=== PATIENT | male | born 1950 | race Caucasian/White ===

== ENCOUNTER 2019-03-23 06:10 | Inpatient (IN) | payer OTHER ==
[~2019-03-23] VITALS: Ht 172.7 cm; Wt 72.6 kg
[2019-03-23 06:15] VITALS: BP 206/109
[2019-03-23] MEDS ORDERED: LIPITOR10 MG PO (06:18)
[2019-03-23] MEDS ORDERED: LISINOPRIL2.5 MG PO (06:18)
[2019-03-23] MEDS ORDERED: SYMBICORT160 MCG/4. INH (06:19)
[2019-03-23] MEDS ORDERED: PROAIR HFA8.5 GM INH (06:19)
[2019-03-23 06:30] LABS: ABSOLUTE LYMPHOCYTES 2.2 thou/uL (0.8-5.3); ABSOLUTE MONOCYTES 1.3 thou/uL (0.0-1.2); ABSOLUTE NEUTROPHILS 6.5 thou/uL (1.6-8.1); BASOPHILS 0.3 %; EOSINOPHILS 0.3 %; HEMATOCRIT 45.4 % (42.0-52.0); HEMOGLOBIN 15.2 gm/dL (14.0-18.0); MCH 32.1 pg (26.0-34.0); MCHC 33.5 g/dL (28.0-37.0); MCV 95.9 fL (80.0-100.0); MONOCYTES 12.7 %; NUCLEATED RBCS 0 /100WBC; PLATELET COUNT* 323 thou/uL (150-400); POLYS 64.7 %; RBC 4.73 mil/uL (4.50-6.00); RDW-CV 12.9 % (10.5-14.5); WBC 10.1 thou/uL (4.0-11.0)
[2019-03-23 06:38] LABS: ANION GAP 8 mmol/L (7-16); BUN 21 mg/dL (7-18); CALCIUM 9.2 mg/dL (8.5-10.1); CHLORIDE 97 mmol/L (98-107); CO2 29 mmol/L (21-32); CREATININE 1.2 mg/dL (0.6-1.3); GLUCOSE 109 mg/dL (70-99); POTASSIUM 4.4 mmol/L (3.5-5.1); SODIUM 134 mmol/L (136-145)
[2019-03-23 06:42] LABS: INR 0.9; PROTIME 9.6 Seconds (9.20-11.50)
[2019-03-23 06:51] LABS: ALBUMIN 3.8 g/dL (3.4-5.0); ALKALINE PHOSPHATASE 73 U/L (46-116); NT-PRO BRAIN NAT PEPTIDE 71 pg/mL (<300); SGOT 22 U/L (15-37); SGPT 35 U/L (30-65); TOTAL BILIRUBIN 0.3 mg/dL (<0.1-1.0); TOTAL PROTEIN 7.6 g/dL (6.4-8.2); TROPONIN-I LEVEL <0.06 ng/mL (<0.06)
[2019-03-23 06:56] LABS: BE -0.9 mmol/L (-2 to +3); PCO2 47.4 mmHg (35.0-45.0); pH 7.345 (7.340-7.450)
[2019-03-23 06:58] LABS: PO2 130.2 mmHg (75.0-100.0)
--- NOTE | 2019-03-23 07:09 | NUR ---
PT REPORTS FEELING MUCH BETTER. O2 REMOVED.
[2019-03-23 09:00] VITALS: BP 112/61
[2019-03-23 09:04] VITALS: BP 130/67
--- NOTE | 2019-03-23 11:07 | EKG ---
[place] [address] ELECTROCARDIOGRAM REPORT Name: ROMA SIMMONS Room: [place] [address] ADM IN .R.#: [id number] Admission: 03/23/19 Attend Phys: Graham Shah Discharge: Date of : 50 Report #: [id number] THIS REPORT FOR: //name// [facility] ED Test Date: 2019-03-23 Test Time: 06:23:51 Pat Name: ROMA SIMMONS Department: Room: [facility] Gender: Drop Press Hand: : 1950 Requested By: Kari Marc Order Number: [id number] MD: Gurinder Godwin Measurements Intervals Stuart Rate: 100 P: 84 CT: 152 QRS: 29 QRSD: 79 T: 70 QT: 327 QTc: 422 Interpretive Statements Sinus tachycardia No previous ECG available for comparison Electronically Signed On 03-23-2019 11:07:35 [employer] by Gurinder Godwin [email or web address] <ELECTRONICALLY SIGNED> By: Gurinder Godwin MD, [facility] 03/23/19 1107 0623 0623 Gurinder Godwin MD, FACC /EPI
[2019-03-23 11:43] VITALS: BP 129/62
[2019-03-23 16:08] VITALS: BP 111/63
[2019-03-24] VITALS (7 sets, daily range): BP systolic 93–146; BP diastolic 42–74
--- NOTE | 2019-03-24 05:56 | NUR ---
ASSUMED PATIENT CARE AT 1900. ASSESSMENT COMPLETED CHARTED. VSS. PATIENT IS SR/ST ON THE MONITOR. PATIENT REQUESTED MEDICATION TO HELP HIM SLEEP. DOCTOR CONTACTED, NEW ORDERS RECEIVED. HOURLY ROUNDING IN PLACE FOR PATIENT SAFETY. CLWR.
--- NOTE | 2019-03-24 08:47 | NUR ---
INITAL ASSESSMENT COMPLETED CHARTED. VSS. TRACING SR/ST ON MONITOR. PT DENIES PAIN. CURRENTLY 93% ON 2LPM. PT REPORTS NON PRODUCTIVE COUGH. HOURLY ROUNDING IN PLACE FOR PT SAFETY. CLWR.
[2019-03-24 08:55] LABS: HEMATOCRIT 41.7 % (42.0-52.0); MCH 32.2 pg (26.0-34.0); MCHC 33.6 g/dL (28.0-37.0); MCV 95.7 fL (80.0-100.0); RBC 4.36 mil/uL (4.50-6.00); RDW-CV 12.7 % (10.5-14.5); WBC 12.8 thou/uL (4.0-11.0)
[2019-03-24 09:07] LABS: CALCIUM 9.5 mg/dL (8.5-10.1); CREATININE 1.1 mg/dL (0.6-1.3); POTASSIUM 4.3 mmol/L (3.5-5.1)
--- NOTE | 2019-03-24 11:45 | NUR ---
MET WITH PT TO DISCUSS HOME SITUATION/DC PLANNING. PT LIVES ALONE, STATES HIS STEPSON IS MOVING IN WITH HIM SO THEY CAN 'HELP EACH OTHER.' PT IS INDEPENDENT, USES NO EQUIPMENT AND HASN'T HAD HH OR BEEN TO SNF. HE DENIES ANY DC NEEDS AT THIS TIME, WAITING TO TALK WITH WILL FOLLOW
[2019-03-25 04:00] VITALS: BP 98/44
[2019-03-25 08:00] VITALS: BP 111/58
--- NOTE | 2019-03-25 08:05 | NUR ---
PT IS ABLE TO COMMUNICATE HIS NEEDS TO STAFF EFFECTIVELY. HE HAS DENIED THE NEED FOR PAIN MEDICATION UP TO THIS TIME. PT STILL ON SUPPLEMENTAL O2 AT THIS TIME. POSSIBLE D/C LATER TODAY.
[2019-03-25 12:10] VITALS: BP 98/52
[2019-03-25 16:20] VITALS: BP 114/57
--- NOTE | 2019-03-25 18:45 | NUR ---
ASSUMED PT CARE AT 0730. ASSESSMENT COMPLETED CHARTED. ABLE TO MAKE NEEDS KNOWN. UP AD KIM IN ROOM. NO C/O PAIN OR DISCOMFORT. SITTING UP IN CHAIR TODAY WATCHING TV OR MOVIES ON HIS PHONE. PT WANTS TO GO HOME AND IS WAITING FOR APPROVAL. WILL CONTINUE TO MONITOR.
[2019-03-25 20:20] VITALS: BP 140/70
[2019-03-26] VITALS (7 sets, daily range): BP systolic 90–127; BP diastolic 42–63
--- NOTE | 2019-03-26 07:59 | NUR ---
PATIENT HAS SLEPT WELL THROUGHOUT MOST OF THE NIGHT. VSS ON 3L 02 VIA NASAL CANNULA. MEDICATIONS GIVEN ORDERED AND CHARTED. PATIENT SINUS RHYTHM ON MONITOR. PATIENT IS UP AD-KIM AND STEADY BUT DOES HAVE SOA ON EXERTION AT TIMES. IV IN RIGHT AC-SL. PATIENT INSTRUCTED TO USE CALL LIGHT WHEN NEEDING ASSISTANCE. HOURLY ROUNDS MADE. WILL CONTINUE WITH PLAN OF CARE AND NURSING TO MONITOR.
[2019-03-26] MEDS ORDERED: SYMBICORT160 MCG/4. INH (11:51)
[2019-03-26] MEDS ORDERED: MUCUS RLF DM E1 EACH PO (11:51)
[2019-03-26] MEDS ORDERED: MEDROL DOSPAK21 TA1 PO (11:51)
[2019-03-26] MEDS ORDERED: IPRAT-ALBUT 0.5-3 ML INH (11:51)
[2019-03-26] MEDS ORDERED: ESCITALOPRAM OX10 MG PO (11:51)
[2019-03-26] MEDS ORDERED: XANAX 0.25 MG0.25 MG PO (11:51)
[2019-03-26] MEDS ORDERED: PROAIR HFA8.5 GM INH (11:51)
--- NOTE | 2019-03-26 15:53 | NUR ---
OXYGEN AND NEBULIZIER ORDERED PER DR ZAVALA. PAPERWORK FAXED TO [facility]. SPOKE TO PATSY WHO CONFIRMED OXYGEN TANK WILL BE DELIVERED TO THE HOSPITAL
--- NOTE | 2019-03-26 16:45 | NUR ---
PATIENT WITH COMPLETE DC ORDER. REVIEWED DC INSTRUCTIONS AND MEDICATION LIST WITH PATIENT ANSWERED QUESTIONS TO PATIENT SATISFACTION. OXYGEN AND NEBULIZER ORDER OBTAINED AND ORDERED FROM [employer]. OXYGEN TANK BROUGHT TO HOSPITAL PRIOR TO DC BY [facility]. IV AND FOAM CHARGER DISCONTINUED. FOAM CHARGER CLEANED AND RETURNED TO POCKET FOR ROOM 233. PATIENT IN POSSESSION OF ALL BELONGINGS. PATIENT LEFT UNIT VIA WC AND NURSING STAFF. PATIENT INSISTS THAT HE WILL DRIVE SELF HOME. PATIENT TRANSPORTED TO HOSPITAL ER ENTRANCE.
== END 2019-03-26 16:44 | disposition home or self-care (01) | DRG 189 ==
LOC: M.ERS 06:10 → M.2W 07:56 → M.TBA-ER 07:56 → M.2W 08:54
PROVIDERS: Personal Emergency Response Attendant; ADMIT Family Medicine
DX: J96.21 Acute and chronic respiratory failure with hypoxia (principal); R65.11 Systemic inflammatory response syndrome (SIRS) of non-infectious origin with acute organ dysfunction; J44.1 Chronic obstructive pulmonary disease with (acute) exacerbation; J44.0 Chronic obstructive pulmonary disease with (acute) lower respiratory infection; J20.8 Acute bronchitis due to other specified organisms; I10 Essential (primary) hypertension; E78.5 Hyperlipidemia, unspecified; R91.1 Solitary pulmonary nodule; F41.9 Anxiety disorder, unspecified; F19.980 Other psychoactive substance use, unspecified with psychoactive substance-induced anxiety disorder; Z87.891 Personal history of nicotine dependence; Z79.899 Other long term (current) drug therapy